=== PATIENT | female | born 1995 | race Caucasian/White ===

== ENCOUNTER 2016-08-06 21:15 | Emergency (ER) | payer OTHER ==
[2016-08-06 22:41] LABS: CONTROL LINE HCG INT CTR LINE PRESENT
--- NOTE | 2016-08-06 23:39 | EDDOCDS ---
Nurse's Notes [facility] Name: Keli Aleman Age: 20 yrs Sex: Female : 1995 Arrival Date: 08/06/2016 Time: 21:15 Bed I9 / Private MD: Jessica [facility] Diagnosis: Contusion of right hand Presentation: 08/06 21:22 Presenting complaint: Patient states: Right hand injury yesterday from fall. wants to rs3 get test done here. home tests were positive and negatives. Adult Sepsis Screening: The patient does not have new or worsening altered mentation. Patient's respiratory rate is less than 22. Systolic blood pressure is greater than 100. Patient has a qSOFA score of 0- Negative Sepsis Screen. Suicide/Homicide risk assessment- the patient denies having any suicidal and/or homicidal ideations and does not present with any other emotional, behavioral or mental health complaints. 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 Transition of care: patient was not received from another setting of care. 21:22 Acuity: TOMAS Level 4 rs3 21:22 Method Of Arrival: Walkin/Carried/Asstd rs3 Triage Assessment: 21:26 General: Appears in no apparent distress. Pain: Location: right hand. HIV screening NA rs3 for this visit Offered previously. DIRECTOR OF RECRUITING: 21:26 LMP N/A - Irregular menses rs3 Historical: - Allergies: Nickel (Rash); - Home Meds: 1. meloxicam 7.5 mg oral tab 1 tab once daily 2. Depo-Provera 150 mg/mL IM susp 1 mL every 3 mo - PMHx: none; - PSHx: wisdom teeth; bilateral breast reduction; - Social history: Smoking status: Patient states was never smoker of tobacco. No barriers to communication noted, The patient speaks fluent Bengali. - Family history: Not pertinent. - : The pt / caregiver states he / she is not on anticoagulants. Home medication list is obtained from the patient. - Exposure Risk Screening:: None identified. Screenin:16 Screening information is obtained from the patient. Fall risk: No risks identified. cz Assistance ADL's: requires no assistance with activities of daily living. Abuse/DV Screen: The patient / caregiver reports he/she is: not in a situation that causes fear, pain or injury. Nutritional screening: No deficits noted. home support is adequate. Assessment: 22:16 General: Appears in no apparent distress, Behavior is appropriate for age. GI: No cz deficits noted. 22:16 General: no deformity of hand noted. cz Vital Signs: 21:17 BP 151 / 89; Pulse 88; Resp 18; Temp 97.3; Pulse Ox 100% ; Weight 72.57 kg; Height 5 elp ft. 3 in. (160.02 cm); 23:31 BP 152 / 79 LA Sitting (auto/reg); Pulse 85 MON; Resp 20 S; Temp 97.2(T); Pulse Ox 96% cln on R/A; 21:17 Body Mass Index 28.34 (72.57 kg, 160.02 cm) [facility] Vitals: 21:17 Log In Time: August 06, 2016 at 21:00. [facility] ED Course: 21:16 Patient visited by Kecia Muñoz PCA. elp 21:16 Patient moved to Waiting elp 21:17 SHENG Lopez is Private Physician. elp 21:17 Patient visited by Kecia Muñoz PCA. elp 21:17 Patient moved to Pre RCE elp 21:25 Triage Initiated rs3 21:42 [facility] Call[facility]. ke 21:42 Patient visited by Peter Callahan FNP. ke 21:42 Patient visited by Peter Callahan FNP. ke 21:42 Patient moved to I kmg1 22:16 Patient visited by Brando Cooper RN. cz 22:16 The patient / caregiver is instructed regarding the plan of care and ED course. cz 22:16 No IV's were initiated during this patient's visit. No procedures done that require cz assistance. 22:57 Patient visited by Peter Callahan FNP. ke 23:19 SHENG Lopez is Referral Physician. ke 23:26 Patient moved to Radiology josef 23:26 Patient moved to I josef Order Results: Lab Order: HCG,Serum Qualitative; SPEC'M 08/06/16 22:10 Test: HCG, SERUM QUALITATIVE; Value: NEGATIVE; Range: NEGATIVE; Status: F Outcome: 23:19 Discharge ordered by Provider. ke 23:38 Discharge Assessment: Patient awake, alert and oriented x 3. No cognitive and/or cz functional deficits noted. Patient verbalized understanding of disposition instructions. patient administered narcotics - no. The following High Risk Discharge criteria are identified: None. Discharged to home ambulatory, with friend. Condition: stable. Discharge instructions given to patient, Instructed on discharge instructions, follow up and referral plans. medication usage, Demonstrated understanding of crutch walking, medications, Pt was receptive of discharge instructions/ teaching. Prescriptions given X 1. No special radiology studies were completed. Property :Personal belongings accompany Pt. 23:38 Patient left the ED. cz Signatures: Chandni Dias, RN RN km Brando Cooper, BRYSON RN cz Ranulfo Rutledge Karl, PHOTO TECHNICIAN PHOTO TECHNICIAN Brianda Elaine,RN RN rs3 Kecia Muñoz, ENGINEERING OFFICER ENGINEERING OFFICER elp Lisette Null, ENGINEERING OFFICER ENGINEERING OFFICER cln PHILD
--- NOTE | 2016-08-06 23:39 | EDDOCDS ---
Physician Documentation [facility] Name: Keli Aleman Age: 20 yrs Sex: Female : 1995 Arrival Date: 08/06/2016 Time: 21:15 Bed I9 / 22 Private MD: SHENG Lopez Disposition: 08/06/16 23:19 Discharged to Home/Self Care. Impression: Contusion of right hand. - Condition is Stable. - Discharge Instructions: Elastic Bandage and RICE, Hand Contusion. - Prescriptions for Ibuprofen 600 mg Oral Tablet - take 1 tablet by ORAL route every 6 hours As needed take with food; 30 tablet. - Medication Reconciliation, Local Pharmacy Hours form. - Follow up: SHENG Lopez; When: 4 - 5 days; Reason: Recheck today's complaints, Continuance of care. - Problem is an ongoing problem. - Symptoms are unchanged. Historical: - Allergies: Nickel (Rash); - Home Meds: 1. meloxicam 7.5 mg oral tab 1 tab once daily 2. Depo-Provera 150 mg/mL IM susp 1 mL every 3 mo - PMHx: none; - PSHx: wisdom teeth; bilateral breast reduction; - Social history: Smoking status: Patient states was never smoker of tobacco. No barriers to communication noted, The patient speaks fluent Amharic. - Family history: Not pertinent. - : The pt / caregiver states he / she is not on anticoagulants. Home medication list is obtained from the patient. - Exposure Risk Screening:: None identified. 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 3 in. (160.02 cm); 23:31 BP 152 / 79 LA Sitting (auto/reg); Pulse 85 MON; Resp 20 S; Temp 97.2(T); Pulse Ox 96% cln on R/A; 21:17 Body Mass Index 28.34 (72.57 kg, 160.02 cm) elp MDM: 21:58 HCG,Serum Qualitative Ordered. EDMS 22:57 HCG,Serum Qualitative Reviewed. ke 22:59 Hand, Complete Ordered. EDMS Signatures: Dispatcher [employer] EDMS Brando Cooper, BRYSON RN Peter Nova, ORNAMENTER HAND ORNAMENTER HAND Brianda Elaine RN RN rs3 MTDD
--- NOTE | 2016-08-07 11:24 | REP ---
Clinical: Trauma. Technique: AP, lateral, bilateral oblique views right hand . Findings: The osseous structures and joint spaces are intact and normal. There is no evidence for acute fracture or dislocation. Surrounding soft tissues are unremarkable. No subcutaneous emphysema or radiodense foreign body. Impression: Normal examination. No acute fracture or dislocation. Signed by Trae Roach MD 08/07/2016 01:28 A
--- NOTE | 2016-08-09 00:39 | EDDOCDS ---
Physician Documentation [facility] Name: Keli Aleman Age: 20 yrs Sex: Female : 1995 Arrival Date: 08/06/2016 Time: 21:15 Bed I9 / 22 Private MD: SHENG Lopez Disposition: 08/06/16 23:19 Discharged to Home/Self Care. Impression: Contusion of right hand. - Condition is Stable. - Discharge Instructions: Elastic Bandage and RICE, Hand Contusion. - Prescriptions for Ibuprofen 600 mg Oral Tablet - take 1 tablet by ORAL route every 6 hours As needed take with food; 30 tablet. - Medication Reconciliation, Local Pharmacy Hours form. - Follow up: SHENG Lopez; When: 4 - 5 days; Reason: Recheck today's complaints, Continuance of care. - Problem is an ongoing problem. - Symptoms are unchanged. Historical: - Allergies: Nickel (Rash); - Home Meds: 1. meloxicam 7.5 mg oral tab 1 tab once daily 2. Depo-Provera 150 mg/mL IM susp 1 mL every 3 mo - PMHx: none; - PSHx: wisdom teeth; bilateral breast reduction; - Social history: Smoking status: Patient states was never smoker of tobacco. No barriers to communication noted, The patient speaks fluent Sinhala. - Family history: Not pertinent. - : The pt / caregiver states he / she is not on anticoagulants. Home medication list is obtained from the patient. - Exposure Risk Screening:: None identified. 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 3 in. (160.02 cm); 23:31 BP 152 / 79 LA Sitting (auto/reg); Pulse 85 MON; Resp 20 S; Temp 97.2(T); Pulse Ox 96% cln on R/A; 21:17 Body Mass Index 28.34 (72.57 kg, 160.02 cm) elp MDM: 21:58 HCG,Serum Qualitative Ordered. EDMS 22:57 HCG,Serum Qualitative Reviewed. ke 22:59 Hand, Complete Ordered. EDMS 08/07 10:36 T-Sheet-- Draft Copy was scanned into [employer] and attached to record. gb Signatures: Dispatcher [employer] EDMS Brando Cooper, RN RN Tasha Clark, Reg Reg gb Peter Callahan, CERTIFIED MIDWIFE CERTIFIED MIDWIFE Brianda Elaine RN RN rs3 The chart was reviewed and I authenticate all verbal orders and agree with the evaluation and treatment provided.Attachments: 10:36 T-Sheet-- Draft Copy gb Chart Complete MTDD
--- NOTE | 2016-08-09 00:39 | EDDOCDS ---
Nurse's Notes [facility] Name: Keli Aleman Age: 20 yrs Sex: Female : 1995 Arrival Date: 08/06/2016 Time: 21:15 Bed I9 / Private MD: [place] [facility] [place]: Contusion of right hand Presentation: 08/06 21:22 Presenting complaint: Patient states: Right hand injury yesterday from fall. wants to rs3 get test done here. home tests were positive and negatives. Adult Sepsis Screening: The patient does not have new or worsening altered mentation. Patient's respiratory rate is less than 22. Systolic blood pressure is greater than 100. Patient has a qSOFA score of 0- Negative Sepsis Screen. Suicide/Homicide risk assessment- the patient denies having any suicidal and/or homicidal ideations and does not present with any other emotional, behavioral or mental health complaints. 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 Transition of care: patient was not received from another setting of care. 21:22 Acuity: TOMAS Level 4 rs3 21:22 Method Of Arrival: Walkin/Carried/Asstd rs3 Triage Assessment: 21:26 General: Appears in no apparent distress. Pain: Location: right hand. HIV screening NA rs3 for this visit Offered previously. COUNSELING PSYCHOLOGIST: 21:26 LMP N/A - Irregular menses rs3 Historical: - Allergies: Nickel (Rash); - Home Meds: 1. meloxicam 7.5 mg oral tab 1 tab once daily 2. Depo-Provera 150 mg/mL IM susp 1 mL every 3 mo - PMHx: none; - PSHx: wisdom teeth; bilateral breast reduction; - Social history: Smoking status: Patient states was never smoker of tobacco. No barriers to communication noted, The patient speaks fluent Maori. - Family history: Not pertinent. - : The pt / caregiver states he / she is not on anticoagulants. Home medication list is obtained from the patient. - Exposure Risk Screening:: None identified. Screenin:16 Screening information is obtained from the patient. Fall risk: No risks identified. cz Assistance ADL's: requires no assistance with activities of daily living. Abuse/DV Screen: The patient / caregiver reports he/she is: not in a situation that causes fear, pain or injury. Nutritional screening: No deficits noted. home support is adequate. Assessment: 22:16 General: Appears in no apparent distress, Behavior is appropriate for age. GI: No cz deficits noted. 22:16 General: no deformity of hand noted. cz Vital Signs: 21:17 BP 151 / 89; Pulse 88; Resp 18; Temp 97.3; Pulse Ox 100% ; Weight 72.57 kg; Height 5 elp ft. 3 in. (160.02 cm); 23:31 BP 152 / 79 LA Sitting (auto/reg); Pulse 85 MON; Resp 20 S; Temp 97.2(T); Pulse Ox 96% cln on R/A; 21:17 Body Mass Index 28.34 (72.57 kg, 160.02 cm) [facility] Vitals: 21:17 Log In Time: August 06, 2016 at 21:00. [facility] ED Course: 21:16 Patient visited by Kecia Muñoz PCA. elp 21:16 Patient moved to Waiting elp 21:17 SHENG Lopez is Private Physician. elp 21:17 Patient visited by Kecia Muñoz PCA. elp 21:17 Patient moved to Pre RCE elp 21:25 Triage Initiated rs3 21:42 [facility] Call[facility]. ke 21:42 Patient visited by Peter Callahan FNP. ke 21:42 Patient visited by Peter Callahan FNP. ke 21:42 Patient moved to I kmg1 22:16 Patient visited by Brando Cooper RN. cz 22:16 The patient / caregiver is instructed regarding the plan of care and ED course. cz 22:16 No IV's were initiated during this patient's visit. No procedures done that require cz assistance. 22:57 Patient visited by Peter Callahan FNP. ke 23:19 SHENG Lopez is Referral Physician. ke 23:26 Patient moved to Radiology josef 23:26 Patient moved to I josef 08/07 10:36 T-Sheet-- Draft Copy was scanned into iMega and attached to record. gb 11:53 Hand, Complete Returned. EDMS Order Results: Lab Order: HCG,Serum Qualitative; SPEC'M 08/06/16 22:10 Test: HCG, SERUM QUALITATIVE; Value: NEGATIVE; Range: NEGATIVE; Status: F Radiology Order: Hand, Complete Test: Hand, Complete REASON FOR EXAMINATION: Trauma; Clinical: Trauma.; ; Technique: AP, lateral, bilateral oblique views right hand .; ; Findings: The osseous structures and joint spaces are intact and normal. There; is no evidence for acute fracture or dislocation. Surrounding soft tissues are; unremarkable. No subcutaneous emphysema or radiodense foreign body.; ; Impression:; Normal examination. No acute fracture or dislocation.; ; ; Signed by; Trae Roach MD 08/07/2016 01:28 A; Outcome: 08/06 23:19 Discharge ordered by Provider. katy 23:38 Discharge Assessment: Patient awake, alert and oriented x 3. No cognitive and/or cz functional deficits noted. Patient verbalized understanding of disposition instructions. patient administered narcotics - no. The following High Risk Discharge criteria are identified: None. Discharged to home ambulatory, with friend. Condition: stable. Discharge instructions given to patient, Instructed on discharge instructions, follow up and referral plans. medication usage, Demonstrated understanding of crutch walking, medications, Pt was receptive of discharge instructions/ teaching. Prescriptions given X 1. No special radiology studies were completed. Property :Personal belongings accompany Pt. 23:38 Patient left the ED. cz Signatures: Dispatcher MedHost EDMS Chandni Dias, RN RN km Brando Cooper RN RN cz Ranulfo Rutledge Gloria, Reg Reg Peter Hernandez, AUTOMOTIVE GLASS SPECIALIST AUTOMOTIVE GLASS SPECIALIST Brianda Elaine RN RN rs3 Kecia Muoñz, SENIOR TRAINING SPECIALIST SENIOR TRAINING SPECIALIST cap Lisette Null, SENIOR TRAINING SPECIALIST SENIOR TRAINING SPECIALIST cln Chart Complete MTDD
--- NOTE | 2016-08-09 00:39 | EDDOCDS ---
Physician Documentation [facility] Name: Keli Aleman Age: 20 yrs Sex: Female : 1995 Arrival Date: 08/06/2016 Time: 21:15 Bed I9 / 22 Private MD: SHENG Lopez Disposition: 08/06/16 23:19 Discharged to Home/Self Care. Impression: Contusion of right hand. - Condition is Stable. - Discharge Instructions: Elastic Bandage and RICE, Hand Contusion. - Prescriptions for Ibuprofen 600 mg Oral Tablet - take 1 tablet by ORAL route every 6 hours As needed take with food; 30 tablet. - Medication Reconciliation, Local Pharmacy Hours form. - Follow up: SHENG Lopez; When: 4 - 5 days; Reason: Recheck today's complaints, Continuance of care. - Problem is an ongoing problem. - Symptoms are unchanged. Historical: - Allergies: Nickel (Rash); - Home Meds: 1. meloxicam 7.5 mg oral tab 1 tab once daily 2. Depo-Provera 150 mg/mL IM susp 1 mL every 3 mo - PMHx: none; - PSHx: wisdom teeth; bilateral breast reduction; - Social history: Smoking status: Patient states was never smoker of tobacco. No barriers to communication noted, The patient speaks fluent Swedish. - Family history: Not pertinent. - : The pt / caregiver states he / she is not on anticoagulants. Home medication list is obtained from the patient. - Exposure Risk Screening:: None identified. COPPER ETCHER: 08/06 21:26 LMP N/A - Irregular menses rs3 Vital Signs: 21:17 BP 151 / 89; Pulse 88; Resp 18; Temp 97.3; Pulse Ox 100% ; Weight 72.57 kg / 159.99 elp lbs; Height 5 ft. 3 in. (160.02 cm); 23:31 BP 152 / 79 LA Sitting (auto/reg); Pulse 85 MON; Resp 20 S; Temp 97.2(T); Pulse Ox 96% cln on R/A; 21:17 Body Mass Index 28.34 (72.57 kg, 160.02 cm) elp MDM: 21:58 HCG,Serum Qualitative Ordered. EDMS 22:57 HCG,Serum Qualitative Reviewed. ke 22:59 Hand, Complete Ordered. EDMS 08/07 10:36 T-Sheet-- Draft Copy was scanned into MEDFonJax and attached to record. gb Signatures: Dispatcher MedHost EDMS Brando Cooper, RN RN Tasha Clark, Reg Reg gb Peter Callahan, EVENTS MANAGER EVENTS MANAGER Brianda Elaine RN RN rs3 The chart was reviewed and I authenticate all verbal orders and agree with the evaluation and treatment provided.Attachments: 10:36 T-Sheet-- Draft Copy gb Chart Complete MTDD
== END 2016-08-06 23:38 | disposition home or self-care (01) ==
LOC: M ED 21:15
DX: S60.221A Contusion of right hand, initial encounter (principal); W19.XXXA Unspecified fall, initial encounter; Y92.89 Other specified places as the place of occurrence of the external cause; Y93.89 Activity, other specified; Y99.8 Other external cause status; R11.0 Nausea; Z79.899 Other long term (current) drug therapy; Z91.09 Other allergy status, other than to drugs and biological substances

== ENCOUNTER 2016-08-07 16:57 | Emergency (ER) | payer OTHER ==
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
--- NOTE | 2016-08-07 18:21 | EDDOCDS ---
Physician Documentation Name: Keli Aleman Age: 20 yrs Sex: Female : 1995 Arrival Date: 08/07/2016 Time: 16:57 Bed 30 Private MD: Disposition: 08/07/16 18:13 Discharged to Home/Self Care. 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 - Condition is Stable. - Discharge Instructions: Adjustment Disorder, Self-Destructive Behavior. - Medication Reconciliation, Local Pharmacy Hours form. - Follow up: Izzy [facility], Behavioral Health; When: 2 - 3 days; Reason: Recheck today's complaints, Continuance of care. - Problem is an ongoing problem. - Symptoms are unchanged. Historical: - Allergies: Nickel (Rash); - Home Meds: 1. Depo-Provera 150 mg/mL IM susp 1 mL every 3 mo 2. meloxicam 7.5 mg oral tab 1 tab once daily as needed 3. ibuprofen 600 mg Oral tab as needed (Last dose: 08/06/2016) - PMHx: none; - PSHx: Breast Reduction; - Social history: Smoking status: Patient states was never smoker of tobacco. No barriers to communication noted, The patient speaks fluent Nigerian, Speaks appropriately for age. - Family history: Not pertinent. - : The pt / caregiver states he / she is not on anticoagulants. Home medication list is obtained from the patient. - Exposure Risk Screening:: None identified. MATERIAL RECLAIMER: 08/07 17:12 LMP N/A - control method kr3 Vital Signs: 17:14 BP 152 / 93; Pulse 77; Resp 16; Temp 98.7(O); Pulse Ox 99% on R/A; Weight 68.04 kg / kr3 150 lbs (R); Height 5 ft. 3 in. (160.02 cm) (R); 18:18 BP 144 / 80; Pulse 77; Resp 18; Temp 98.0(O); Pulse Ox 99% on R/A; Pain 0/10; jmb 17:14 Body Mass Index 26.57 (68.04 kg, 160.02 cm) kr3 Signatures: Peter Callahan FNP OFFICER LIEUTENANT Mary Grace Moore RN RN kr3 Borrero,Nima,RN RN jmb MTDD
--- NOTE | 2016-08-09 19:22 | EDDOCDS ---
Physician Documentation [facility] Name: Keli Aleman Age: 20 yrs Sex: Female : 1995 Arrival Date: 08/07/2016 Time: 16:57 Bed 30 Private MD: Disposition: 08/07/16 18:13 Discharged to Home/Self Care. 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 - Condition is Stable. - Discharge Instructions: Adjustment Disorder, Self-Destructive Behavior. - Medication Reconciliation, Local Pharmacy Hours form. - Follow up: Izzy Machuca, Behavioral Health; When: 2 - 3 days; Reason: Recheck today's complaints, Continuance of care. - Problem is an ongoing problem. - Symptoms are unchanged. Historical: - Allergies: Nickel (Rash); - Home Meds: 1. Depo-Provera 150 mg/mL IM susp 1 mL every 3 mo 2. meloxicam 7.5 mg oral tab 1 tab once daily as needed 3. ibuprofen 600 mg Oral tab as needed (Last dose: 08/06/2016) - PMHx: none; - PSHx: Breast Reduction; - Social history: Smoking status: Patient states was never smoker of tobacco. No barriers to communication noted, The patient speaks fluent [place] Of [place], Speaks appropriately for age. - Family history: Not pertinent. - : The pt / caregiver states he / she is not on anticoagulants. Home medication list is obtained from the patient. - Exposure Risk Screening:: None identified. OUTSIDE PLANT ENGINEER: 08/07 17:12 LMP N/A - control method kr3 Vital Signs: 17:14 BP 152 / 93; Pulse 77; Resp 16; Temp 98.7(O); Pulse Ox 99% on R/A; Weight 68.04 kg / kr3 150 lbs (R); Height 5 ft. 3 in. (160.02 cm) (R); 18:18 BP 144 / 80; Pulse 77; Resp 18; Temp 98.0(O); Pulse Ox 99% on R/A; Pain 0/10; jmb 17:14 Body Mass Index 26.57 (68.04 kg, 160.02 cm) kr3 MDM: 18:25 PSA Outpatient Referrals was scanned into Pingup and attached to record. ms 18:37 Financial registration complete. zo 18:50 Other: EMS run sheet was scanned into Pingup and attached to record. ms 19:54 [facility] Payment Agreement was scanned into MEDHOST and attached to record. zo 08/08 08: T-Sheet-- Draft Copy was scanned into Bantu LLCHOST and attached to record. gb 13:17 PCR was scanned into MEDHOST and attached to record. gb Signatures: Stone, Caron, PSA PSA ms Denver, Tasha, Reg Reg gb Peter Callahan, COMMERCIAL HORTICULTURE INSTRUCTOR Mary Grace Monique,RN RN kr3 Trell Douglas Joshua,RN RN jmb The chart was reviewed and I authenticate all verbal orders and agree with the evaluation and treatment provided.Attachments: 19:54 [facility] Payment Agreement zo 08/08 08:31 T-Sheet-- Draft Copy gb Chart Complete MTDD
--- NOTE | 2016-08-09 19:22 | EDDOCDS ---
Physician Documentation [facility] Name: Keli Aleman Age: 20 yrs Sex: Female : 1995 Arrival Date: 08/07/2016 Time: 16:57 Bed 30 Private MD: Disposition: 08/07/16 18:13 Discharged to Home/Self Care. 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 - Condition is Stable. - Discharge Instructions: Adjustment Disorder, Self-Destructive Behavior. - Medication Reconciliation, Local Pharmacy Hours form. - Follow up: Izzy Machuca, Behavioral Health; When: 2 - 3 days; Reason: Recheck today's complaints, Continuance of care. - Problem is an ongoing problem. - Symptoms are unchanged. Historical: - Allergies: Nickel (Rash); - Home Meds: 1. Depo-Provera 150 mg/mL IM susp 1 mL every 3 mo 2. meloxicam 7.5 mg oral tab 1 tab once daily as needed 3. ibuprofen 600 mg Oral tab as needed (Last dose: 08/06/2016) - PMHx: none; - PSHx: Breast Reduction; - Social history: Smoking status: Patient states was never smoker of tobacco. No barriers to communication noted, The patient speaks fluent Equ[place] Guinean, Speaks appropriately for age. - Family history: Not pertinent. - : The pt / caregiver states he / she is not on anticoagulants. Home medication list is obtained from the patient. - Exposure Risk Screening:: None identified. STREET PHOTOGRAPHER: 08/07 17:12 LMP N/A - control method kr3 Vital Signs: 17:14 BP 152 / 93; Pulse 77; Resp 16; Temp 98.7(O); Pulse Ox 99% on R/A; Weight 68.04 kg / kr3 150 lbs (R); Height 5 ft. 3 in. (160.02 cm) (R); 18:18 BP 144 / 80; Pulse 77; Resp 18; Temp 98.0(O); Pulse Ox 99% on R/A; Pain 0/10; jmb 17:14 Body Mass Index 26.57 (68.04 kg, 160.02 cm) kr3 MDM: 18:25 PSA Outpatient Referrals was scanned into AVA.ai and attached to record. ms 18:37 Financial registration complete. zo 18:50 Other: EMS run sheet was scanned into AVA.ai and attached to record. ms 19:54 [facility] Payment Agreement was scanned into MEDHOST and attached to record. zo 08/08 08: T-Sheet-- Draft Copy was scanned into MotiloHOST and attached to record. gb 13:17 PCR was scanned into MEDHOST and attached to record. gb Signatures: Stone, Caron, PSA PSA ms Denver, Tasha, Reg Reg gb Peter Callahan, PRIMARY CARE MD Mary Grace Monique,RN RN kr3 Trell Douglas Joshua,RN RN jmb The chart was reviewed and I authenticate all verbal orders and agree with the evaluation and treatment provided.Attachments: 19:54 [facility] Payment Agreement zo 08/08 08:31 T-Sheet-- Draft Copy gb Chart Complete MTDD
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
== END 2016-08-07 18:20 | disposition home or self-care (01) ==
LOC: M ED 16:57
DX: F43.0 Acute stress reaction (principal); Z79.899 Other long term (current) drug therapy; Z91.09 Other allergy status, other than to drugs and biological substances

== ENCOUNTER 2016-11-19 03:54 | Emergency (ER) | payer OTHER ==
[2016-11-19] MEDS ORDERED: AMIT25TA PO (06:13)
[2016-11-19] MEDS ORDERED: ZOFR4TAB3 PO (07:31)
== END 2016-11-19 04:16 | disposition left against medical advice (07) ==
LOC: M ED 04:15
DX: Z04.8 Encounter for examination and observation for other specified reasons (principal); Z53.21 Procedure and treatment not carried out due to patient leaving prior to being seen by health care provider

== ENCOUNTER 2016-11-19 06:00 | Emergency (ER) | payer OTHER ==
[~2016-11-19] VITALS: Ht 160 cm; Wt 74.8 kg
[2016-11-19] MEDS ORDERED: AMIT25TA PO (06:13)
[2016-11-19] MEDS ORDERED: ONDANSETRON 4 MG ORAL DISINTEGRATING TAB (S0181) PO ONE (06:30)
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
[2016-11-19] MEDS ORDERED: ZOFR4TAB3 PO (07:31)
[2016-11-19 07:36] VITALS: BP 151/89
== END 2016-11-19 07:40 | disposition home or self-care (01) ==
LOC: M ED 06:35
DX: S00.90XA Unspecified superficial injury of unspecified part of head, initial encounter (principal); S00.31XA Abrasion of nose, initial encounter; Y04.8XXA Assault by other bodily force, initial encounter; Y92.89 Other specified places as the place of occurrence of the external cause; Y93.89 Activity, other specified; Y99.8 Other external cause status; R11.0 Nausea; D64.9 Anemia, unspecified; Z79.899 Other long term (current) drug therapy; F17.200 Nicotine dependence, unspecified, uncomplicated; Z91.09 Other allergy status, other than to drugs and biological substances

== ENCOUNTER → 2016-12-20 | Outpatient (CLI) | payer OTHER ==
[~2016-12-20] MED LIST: AMIT25TA PO; CONRAY-43 43% 50ML VIAL (Q9960) As Ordered ONE; LIDOCAINE 1% MDV 20ML VIAL As Ordered ONE; PERC5TAB6 PO; TRIAMCINOLONE ACETONIDE SUSP 40 MG/ML VIAL (J3301) As Ordered ONE; ZOFR4TAB3 PO
--- NOTE | 2016-12-20 20:10 | REP ---
Right hip injection The procedure was performed under the direct supervision of Dr. Cash. The benefits and risks including but not limited to pain infection and bleeding and anaphylaxis were explained to the patient and informed consent was obtained. The right femoral neck was localized using fluoroscopic guidance. The skin was prepped and draped in a sterile fashion. 1% lidocaine was used as a local anesthetic. Using fluoroscopic guidance a 22-gauge spinal needle was inserted and advanced to the femoral neck. 0.5 ml of Conray 43 was injected to verify placement. 10 ml of a solution containing 9 ml of 1% Xylocaine and 1 ml of Kenalog 40 mg was injected. The needle was then removed. The patient tolerated the procedure well and there were no immediate complications. Four seconds of fluoro time was utilized for this procedure. Reviewed by ESHA Smart 12/20/2016 01:57 PSigned by Jim Cash MD 12/20/2016 07:51 P
== END ==
LOC: M RADPRO 09:58
PROVIDERS: ATTEND Orthopaedic Surgery
DX: M25.551 Pain in right hip (principal)
CPT/HCPCS: 20610; 77002; J3301; Q9960

== ENCOUNTER 2016-12-30 08:23 | Emergency (ER) | payer OTHER ==
[~2016-12-30] VITALS: Ht 160 cm; Wt 68.0 kg
[~2016-12-30 08:23] MED LIST changes: -CONRAY-43 43% 50ML VIAL (Q9960) As Ordered ONE; -LIDOCAINE 1% MDV 20ML VIAL As Ordered ONE; -PERC5TAB6 PO; -TRIAMCINOLONE ACETONIDE SUSP 40 MG/ML VIAL (J3301) As Ordered ONE
[2016-12-30] MEDS ORDERED: KETOROLAC 60 MG/2 ML VIAL (J1885) IM ONE (09:15)
[2016-12-30] MEDS ORDERED: PERC5TAB12 PO (10:15)
[2016-12-30 10:23] VITALS: BP 145/96
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
== END 2016-12-30 10:36 | disposition home or self-care (01) ==
LOC: M ED 09:30
DX: S92.515A Nondisplaced fracture of proximal phalanx of left lesser toe(s), initial encounter for closed fracture (principal); W19.XXXA Unspecified fall, initial encounter; Y92.009 Unspecified place in unspecified non-institutional (private) residence as the place of occurrence of the external cause; Y93.89 Activity, other specified; Y99.8 Other external cause status; Z91.09 Other allergy status, other than to drugs and biological substances
CPT/HCPCS: 73630; 81025; 96372; 99283; J1885

== ENCOUNTER 2017-07-23 18:31 | Emergency (ER) | payer OTHER ==
[2017-07-23] MEDS: diphenhydrAMINE INJ 50MG/ML VIAL (J1200) IV (20:59)
[2017-07-23] MEDS: KETOROLAC 30 MG/ML VIAL (J1885) IV (21:00)
[2017-07-23] MEDS: METOCLOPRAMIDE INJ 10MG/2ML VIAL (J2765) IV (21:00)
[2017-07-23] MEDS: NS 1,000 ML IV (21:00)
== END 2017-07-23 22:31 | disposition home or self-care (01) ==
LOC: M ED 18:31
DX: J06.9 Acute upper respiratory infection, unspecified (principal); B34.9 Viral infection, unspecified; Z98.890 Other specified postprocedural states; Z91.018 Allergy to other foods; Z86.2 Personal history of diseases of the blood and blood-forming organs and certain disorders involving the immune mechanism
CPT/HCPCS: J1200

== ENCOUNTER 2017-10-30 18:56 | Emergency (ER) | payer OTHER ==
[2017-10-30] MEDS: diphenhydrAMINE INJ 50MG/ML VIAL (J1200) IV (19:32)
[2017-10-30] MEDS: ONDANSETRON 4MG/2ML VIAL (J2405) IV (19:32)
[2017-10-30] MEDS: KETOROLAC 30 MG/ML VIAL (J1885) IV (19:32)
[2017-10-30 19:33] LABS: BASO # 0.1 10^3/uL (0.0-0.2); BASO % 0.8 % (0.0-1.0); EOS # 0.1 10^3/uL (0.0-0.50); HEMATOCRIT 34.9 % (36.0-47.0); HEMOGLOBIN 11.5 g/dl (12.0-15.5); IMMATURE GRANULOCYTE % 0.2 % (0-3.0); LYMPH % 33.4 % (24.0-44.0); MEAN CORPUSCULAR HEMOGLOBIN 30.7 pg (27.0-33.0); MEAN CORPUSCULAR VOLUME 93.1 fl (80.0-96.0); MONO # 0.6 10^3/uL (0.0-0.8); MONO % 6.9 % (0.0-5.0); NEUTROPHILS # 5.1 10^3/uL (1.8-7.7); NEUTROPHILS % 57.7 % (36.0-66.0); PLATELET COUNT, AUTOMATED 221 10^3/uL (150-450); RED BLOOD COUNT 3.75 10^6/uL (4.00-5.40); RED CELL DISTRIBUTION WIDTH 13.1 % (11.5-14.5); WHITE BLOOD COUNT 8.9 10^3/uL (4.0-10.0)
[2017-10-30 19:51] LABS: ANION GAP 6 MEQ/L (8-16); BLOOD UREA NITROGEN 14 MG/DL (7-18); CALCIUM LEVEL 8.5 MG/DL (8.5-10.1); CARBON DIOXIDE LEVEL 28 MEQ/L (21-32); CHLORIDE LEVEL 108 MEQ/L (98-107); CREATININE FOR GFR 0.87 MG/DL (0.55-1.30); GLUCOSE, FASTING 97 MG/DL (70-100); POTASSIUM SERUM 3.6 MEQ/L (3.5-5.1); SODIUM LEVEL 142 MEQ/L (136-145)
== END 2017-10-30 21:17 | disposition home or self-care (01) ==
LOC: M ED 18:56
DX: G44.209 Tension-type headache, unspecified, not intractable (principal); F43.10 Post-traumatic stress disorder, unspecified; Z91.048 Other nonmedicinal substance allergy status; Z79.899 Other long term (current) drug therapy
CPT/HCPCS: J1200

== ENCOUNTER 2018-05-22 07:29 | Emergency (ER) | payer OTHER ==
[2018-05-22] MEDS: METOCLOPRAMIDE INJ 10MG/2ML VIAL (J2765) IV (07:57)
[2018-05-22] MEDS: NS 1,000 ML IV (07:57)
[2018-05-22] MEDS: KETOROLAC 30 MG/ML VIAL (J1885) IV (07:57)
[2018-05-22] MEDS: diphenhydrAMINE INJ 50MG/ML VIAL (J1200) IV (07:57)
[2018-05-22] MEDS ORDERED: ONDANSETRON 4MG/2ML VIAL (J2405) As Ordered (09:30)
[2018-05-22] MEDS: ONDANSETRON 4MG/2ML VIAL (J2405) IV (09:32)
== END 2018-05-22 09:48 | disposition home or self-care (01) ==
LOC: M ED 07:29
DX: G43.709 Chronic migraine without aura, not intractable, without status migrainosus (principal); Z91.048 Other nonmedicinal substance allergy status; Z79.899 Other long term (current) drug therapy
CPT/HCPCS: J1200

== ENCOUNTER 2018-06-04 21:13 | Emergency (ER) | payer OTHER ==
[2018-06-04] MEDS: diphenhydrAMINE INJ 50MG/ML VIAL (J1200) IV (23:08)
[2018-06-04] MEDS: METOCLOPRAMIDE INJ 10MG/2ML VIAL (J2765) IV (23:15)
[2018-06-04] MEDS: KETOROLAC 30 MG/ML VIAL (J1885) IV (23:15)
== END 2018-06-05 00:02 | disposition home or self-care (01) ==
LOC: M ED 06-05 00:02
DX: G43.919 Migraine, unspecified, intractable, without status migrainosus (principal); Z91.048 Other nonmedicinal substance allergy status
CPT/HCPCS: J1200

== ENCOUNTER → 2018-06-07 | Outpatient (REF) | payer OTHER ==
[2018-06-07 13:26] LABS: BASO # 0.1 10^3/uL (0.0-0.2); BASO % 0.7 % (0.0-1.0); EOS # 0.1 10^3/uL (0.0-0.50); HEMATOCRIT 37.9 % (36.0-47.0); HEMOGLOBIN 12.2 g/dl (12.0-15.5); IMMATURE GRANULOCYTE % 0.4 % (0-3.0); LYMPH # 2.1 10^3/uL (1.5-6.5); LYMPH % 25.6 % (24.0-44.0); MEAN CORPUSCULAR HEMOGLOBIN 30.3 pg (27.0-33.0); MEAN CORPUSCULAR HGB CONC 32.2 g/dl (32.0-36.5); MEAN CORPUSCULAR VOLUME 94.3 fl (80.0-96.0); MONO # 0.7 10^3/uL (0.0-0.8); MONO % 8.6 % (0.0-5.0); NEUTROPHILS # 5.2 10^3/uL (1.8-7.7); NEUTROPHILS % 63.7 % (36.0-66.0); PLATELET COUNT, AUTOMATED 307 10^3/uL (150-450); RED BLOOD COUNT 4.02 10^6/uL (4.00-5.40); RED CELL DISTRIBUTION WIDTH 12.8 % (11.5-14.5); WHITE BLOOD COUNT 8.2 10^3/uL (4.0-10.0)
[2018-06-07 13:48] LABS: ALBUMIN 3.7 GM/DL (3.2-5.2); ALBUMIN/GLOBULIN RATIO 1.09 (1.00-1.93); ALKALINE PHOSPHATASE 68 U/L (45-117); ALT/SGPT 21 U/L (12-78); ANION GAP 9 MEQ/L (8-16); AST/SGOT 13 U/L (7-37); BILIRUBIN,TOTAL 0.3 MG/DL (0.2-1.0); BLOOD UREA NITROGEN 16 MG/DL (7-18); CALCIUM LEVEL 8.2 MG/DL (8.5-10.1); CARBON DIOXIDE LEVEL 24 MEQ/L (21-32); CHLORIDE LEVEL 108 MEQ/L (98-107); CREATININE FOR GFR 1.12 MG/DL (0.55-1.30); GLOMERULAR FILTRATION RATE > 60.0 (>60); GLUCOSE, FASTING 78 MG/DL (70-100); POTASSIUM SERUM 4.4 MEQ/L (3.5-5.1); RHEUMATOID FACTOR QUANT < 10.0 IU/ML (<15.0); SODIUM LEVEL 141 MEQ/L (136-145); TOTAL 25(OH) VITAMIN D 28.6 NG/ML (30.0-100.0); TOTAL PROTEIN 7.1 GM/DL (6.4-8.2)
[2018-06-07 14:24] LABS: ERYTHROCYTE SEDIMENTATION RATE 17 mm/hr (0-20)
[2018-06-08 14:13] LABS: ANTINUCLEAR ANTIBODIES DIRECT Negative (Negative)
== END ==
LOC: M LABNEURO 09:45
DX: R51 Headache (principal)
CPT/HCPCS: 84443

== ENCOUNTER 2018-08-09 15:36 | Emergency (ER) | payer OTHER ==
[~2018-08-09] VITALS: Ht 160 cm; Wt 85.9 kg
[~2018-08-09 15:36] MED LIST changes: +BENA25TA10 PO; +KETO10TAB PO; +MIRT1TAB PO; +NAPR-885 PO; +PERC5TAB12 PO; +REGL10TA6 PO; +RIZA10TA4; +SUMA50TA2 PO; +TOPI100T9; +TRAZ-163; +TRAZ25TA PO; +WELLTAB38; +ZOFR4TAB14 PO; -ZOFR4TAB3 PO
[2018-08-09] MEDS ORDERED: PREN1TAB26 PO (15:41)
[2018-08-09 17:22] LABS: BASO % 0.3 % (0.0-1.0); EOS # 0.1 10^3/uL (0.0-0.50); EOS % 0.6 % (0.0-3.0); HEMATOCRIT 36.8 % (36.0-47.0); HEMOGLOBIN 12.2 g/dl (12.0-15.5); LYMPH # 1.9 10^3/uL (1.5-6.5); LYMPH % 16.5 % (24.0-44.0); MEAN CORPUSCULAR HEMOGLOBIN 30.7 pg (27.0-33.0); MEAN CORPUSCULAR HGB CONC 33.2 g/dl (32.0-36.5); MEAN CORPUSCULAR VOLUME 92.7 fl (80.0-96.0); MONO # 0.6 10^3/uL (0.0-0.8); MONO % 5.7 % (0.0-5.0); NEUTROPHILS # 8.6 10^3/uL (1.8-7.7); NEUTROPHILS % 76.5 % (36.0-66.0); PLATELET COUNT, AUTOMATED 276 10^3/uL (150-450); RED BLOOD COUNT 3.97 10^6/uL (4.00-5.40); WHITE BLOOD COUNT 11.3 10^3/uL (4.0-10.0)
--- NOTE | 2018-08-09 17:31 | REP ---
Clinical: Dating and viability. Technique: Transabdominal First trimester obstetrical ultrasound with color Doppler evaluation. Findings: Single live early intrauterine is appreciated. Gestational sac with yolk sac and pole identified. Neches-rump length of 5 cm corresponds to 11 weeks 5 days gestational age with estimated date of delivery 02/23/2019 . heart rate equals 158 beats per minute. No gross abnormalities are identified. Maternal ovaries are normal and a 3.7 cm right corpus luteal cyst is identified. Bilateral ovaries are normal and without torsion. Right ovary measures 5.7 x 3.6 x 4.0 cm; RI 0.45. Left ovary measures 2.9 x 3.0 x 1.7 cm; RI 0.47 Impression: Single live early intrauterine at 11 weeks 5 days gestational age. Complete anatomical assessment should be performed and 19-20 weeks. Electronically Signed by Trae Roach MD 08/09/2018 05:23 P
[2018-08-09] MEDS ORDERED: ACETAMINOPHEN TAB 650MG DOSE (2X325MG) PO ONE (19:00)
[2018-08-09] MEDS ORDERED: AMOX500C PO (19:59)
[2018-08-09 20:06] VITALS: BP 136/86
[2018-08-09 20:53] LABS: CHLAMYDIA DNA AMPLIFICATION NEGATIVE (NEGATIVE); GC DNA AMPLIFICATION NEGATIVE (NEGATIVE)
== END 2018-08-09 20:09 | disposition home or self-care (01) ==
LOC: M ED 15:36
DX: O9A.211 Injury, poisoning and certain other consequences of external causes complicating pregnancy, first trimester (principal); W00.9XXA Unspecified fall due to ice and snow, initial encounter; Y92.89 Other specified places as the place of occurrence of the external cause; Y93.H1 Activity, digging, shoveling and raking; O23.41 Unspecified infection of urinary tract in pregnancy, first trimester; O99.341 Other mental disorders complicating pregnancy, first trimester; F43.20 Adjustment disorder, unspecified; Z3A.11 11 weeks gestation of pregnancy; Z87.891 Personal history of nicotine dependence; Z91.048 Other nonmedicinal substance allergy status

== ENCOUNTER 2018-09-10 23:29 | Emergency (ER) | payer OTHER ==
[~2018-09-10] VITALS: Ht 160 cm; Wt 81.8 kg
[~2018-09-10 23:29] MED LIST changes: +AMOX500C PO; +PREN1TAB26 PO
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
[2018-09-11 01:51] VITALS: BP 135/76
== END 2018-09-11 01:54 | disposition home or self-care (01) ==
LOC: M ED 23:29
DX: S39.91XA Unspecified injury of abdomen, initial encounter (principal); Y04.8XXA Assault by other bodily force, initial encounter; Y92.9 Unspecified place or not applicable; Y93.89 Activity, other specified; Y99.9 Unspecified external cause status; Z3A.16 16 weeks gestation of pregnancy; O34.82 Maternal care for other abnormalities of pelvic organs, second trimester; Z79.899 Other long term (current) drug therapy; Z91.89 Other specified personal risk factors, not elsewhere classified

== ENCOUNTER 2018-10-18 01:04 | Outpatient (CLI) | payer OTHER ==
[~2018-10-18] VITALS: Ht 160 cm; Wt 87.4 kg
[2018-10-18 01:34] VITALS: BP 140/84
[2018-10-18] MEDS ORDERED: ONDANSETRON 4 MG ORAL DISINTEGRATING TAB (Q0162 PER 1MG) As Ordered ONE (01:38)
[2018-10-18] MEDS ORDERED: ZOLO25TA PO (01:41)
[2018-10-18] MEDS ORDERED: PRENTAB9 PO (01:41)
[2018-10-18] MEDS ORDERED: ONDANSETRON 4 MG ORAL DISINTEGRATING TAB (Q0162 PER 1MG) PO ONE (01:45)
[2018-10-18 01:51] VITALS: BP 130/73
[2018-10-18 02:06] VITALS: BP 121/66
[2018-10-18 02:21] VITALS: BP 131/65
[2018-10-18 02:36] VITALS: BP 116/58
[2018-10-18 03:44] VITALS: BP 107/59
--- NOTE | 2018-10-18 04:12 | NUR ---
L&D Triage 22yo G1 at 21+5 weeks. Presents with lower pelvic discomfort and nausea/vomiting. No VB/LOF/uctx. Reports FM. PN course has been uncomplicated. PMH: none SH: b/l breast reduction, hip arthroplasty Meds: PNV All: Reglan, Nickel. 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 Uterine fundus nontender. Fundal ht c/w/d. Doptones/EFM: 160bpm Mabie: no ctxs A/P: 22yo G1 at 21+5 weeks. Symptoms improved with Zofran ODT. -Routine second trimester precautions reviewed -RTO as scheduled. Gonsalo Ni DO
== END 2018-10-18 04:09 | disposition home or self-care (01) ==
LOC: M LDO 01:04
PROVIDERS: ATTEND Obstetrics & Gynecology
DX: O21.0 Mild hyperemesis gravidarum (principal); O26.892 Other specified pregnancy related conditions, second trimester; R10.30 Lower abdominal pain, unspecified; Z3A.21 21 weeks gestation of pregnancy
CPT/HCPCS: G0378; G0463; Q0162

== ENCOUNTER 2018-11-04 16:34 | Outpatient (CLI) | payer OTHER ==
[~2018-11-04] VITALS: Ht 160 cm; Wt 89.0 kg
[~2018-11-04 16:34] MED LIST changes: +PRENTAB9 PO; +ZOLO25TA PO
[2018-11-04 16:50] VITALS: BP 125/83
[2018-11-04] MEDS ORDERED: LR 1,000 ML IV ONE (17:30)
[2018-11-04] MEDS ORDERED: ONDANSETRON 4MG/2ML VIAL (J2405) IV ONE (17:30)
[2018-11-04 18:02] VITALS: BP 135/86
[2018-11-04 18:10] VITALS: BP 122/64
[2018-11-04 18:11] LABS: HEMATOCRIT 33.8 % (36.0-47.0); HEMOGLOBIN 11.4 g/dl (12.0-15.5); MEAN CORPUSCULAR HEMOGLOBIN 32.7 pg (27.0-33.0); MEAN CORPUSCULAR HGB CONC 33.7 g/dl (32.0-36.5); MEAN CORPUSCULAR VOLUME 96.8 fl (80.0-96.0); PLATELET COUNT, AUTOMATED 228 10^3/uL (150-450); RED BLOOD COUNT 3.49 10^6/uL (4.00-5.40); WHITE BLOOD COUNT 13.9 10^3/uL (4.0-10.0)
[2018-11-04 18:36] LABS: ALT/SGPT 19 U/L (12-78); BILIRUBIN,TOTAL 0.1 MG/DL (0.2-1.0); BLOOD UREA NITROGEN 7 MG/DL (7-18); CALCIUM LEVEL 8.1 MG/DL (8.5-10.1); CARBON DIOXIDE LEVEL 25 MEQ/L (21-32); CHLORIDE LEVEL 108 MEQ/L (98-107); CREATININE FOR GFR 0.57 MG/DL (0.55-1.30); GLOMERULAR FILTRATION RATE > 60.0 (>60); GLUCOSE, FASTING 79 MG/DL (70-100); POTASSIUM SERUM 3.8 MEQ/L (3.5-5.1); SODIUM LEVEL 138 MEQ/L (136-145)
--- NOTE | 2018-11-04 19:43 | IPNPDOC ---
Text Note Date of Service The patient was seen on 11/04/18. NOTE 22 yo at 24+1 weeks presents to L&D with the complaint of n/v and diarrhea since last night after she ate chicken nuggets from [employer]. She reports vomiting multiple episodes of vomiting today and she was even unable to tolerate water. In addition, she endorses right upper quadrant pain. She denies any fevers/chills. She also denies any recent travel, sick contacts. She denies any obstetric complaints to include vaginal bleeding, leakage of fluid, discharge, or contractions. She endorses movement. Vitals - VSS, afebrile, normotensive, non tachycardic General - AAOX3, laying in bed, NAD Abdomen - Gravid uterus, no fundal tenderness to palpation in RUQ. No tenderness in RLQ quadrant or anywhere in the lower pelvis. Extremities - No edema. FHR: 150 HR Labs: CBC - 13.9>11.4/33.8<228 BMP - 138/3.8--108/25--7/0.57<79 AST/ALT - Rads: RUQ US - Negative for gallbladder or biliary disease. Ms. Aleman received IV fluids and IV zofran in triage with significant improvement in symptoms. She had no vomiting in triage and became very hungry. Suspect likely viral GI syndrome. No evidence of acute bacterial infection. Negative RUQ US. Reassuring status. Patient discharged home with return precautions. Venancio, DO A-FIB/CHADSVASC A-FIB History Current/History of A-Fib/PAF?: No VS,Fishbone, I+O VS, Fishbone, I+O Laboratory Tests 11/04/18 17:59 Red Blood Count 3.49 L, Mean Corpuscular Volume 96.8 H, Mean Corpuscular Hemoglobin 32.7, Mean Corpuscular Hemoglobin Concent 33.7, Red Cell Distribution Width 13.3, Calcium Level 8.1 L, Aspartate Amino Transf (AST/SGOT) 17, Alanine Aminotransferase (ALT/SGPT) 19, Alkaline Phosphatase 83, Total Bilirubin 0.1 L, Total Protein 7.0, Albumin 3.0 L Vital Signs Date Time Temp Pulse Resp B/P (MAP) Pulse Ox O2 Delivery O2 Flow Rate FiO2 11/04/18 18:10 97.6 83 18 122/64 (83) AB OCHOA DO Nov 04, 2018 19:43
[2018-11-04 20:20] VITALS: BP 120/74
--- NOTE | 2018-11-05 07:27 | REP ---
REASON: Right upper quadrant pain. COMPARISON: None. Multiple ultrasonographic images of the liver show the hepatic parenchymal echo pattern to be within normal limits. There is no mass or ductal dilatation. The common bile duct measures 3 mm. Multiple sonographic images of the gallbladder show no abnormalities. There is no abnormal gallbladder wall thickening or pericholecystic edema. There are no choleliths. The imaged portion of the pancreas and right kidney are unremarkable. IMPRESSION: Normal exam. Electronically Signed by Imtiaz Berumen DO 11/05/2018 04:30 P
== END 2018-11-04 20:30 | disposition home or self-care (01) ==
LOC: M LDO 16:34
PROVIDERS: ATTEND Obstetrics & Gynecology
DX: O99.89 Other specified diseases and conditions complicating pregnancy, childbirth and the puerperium (principal); Z3A.24 24 weeks gestation of pregnancy; R11.2 Nausea with vomiting, unspecified; R19.7 Diarrhea, unspecified
CPT/HCPCS: 36415; 76705; 80053; 85027; 96374; 96375; G0378; G0463; J2405

== ENCOUNTER 2018-12-26 19:38 | Outpatient (CLI) | payer OTHER ==
[~2018-12-26] VITALS: Ht 160 cm; Wt 91.0 kg
[~2018-12-26 19:38] MED LIST changes: +TRAZ1TAB11 PO; -TRAZ25TA PO
[2018-12-26 19:57] VITALS: BP 113/69
--- NOTE | 2018-12-26 20:43 | IPNPDOC ---
Text Note Date of Service The patient was seen on 12/26/18. NOTE 23 yo at 31+4 weeks gestation presented to L&D with the complaint of decreased movement and intermittent back pain. She reports not feeling her baby move much today at all. In addition, she reports fairly constant back pain that makes it difficult to sleep. She reports spotting earlier, but not further bleeding. She also denies any contractions, discharge, or leakage of fluid. Vitals - VSS, afebrile, normotensive, non tachycardic General - AAOX3, sitting up in bed, NAD Abdomen - Gravid uterus, no fundal tenderness Back exam - No CVA tenderness. no flank tenderness. Mild tenderness to palpation at lumbosacral junction. Extremities - No edema FHR tracing - Cat I with moderate variability, +accels, no decels. No ctx on monitor. Bedside limited TAUS (anatomy not assessed): Viable SIUP. +FCA. DORI 17.4cm. +gross movement. NST reactive and TAUS findings reassuring. Patient was reassured in triage. Back pain likely MSK. Recommended maternity belt, heating pads, Tylenol. Follow up at next OB appointment as scheduled. Return to care sooner for any urgent concerns. All questions answered. DO JAIR Schaffer,Lizzie, I+O VS, Lizzie, I+O Vital Signs Date Time Temp Pulse Resp B/P (MAP) Pulse Ox O2 Delivery O2 Flow Rate FiO2 12/26/18 19:57 98.6 86 18 113/69 (84) AB OCHOA DO Dec 26, 2018 20:42
== END 2018-12-26 20:45 | disposition home or self-care (01) ==
LOC: M LDO 19:38
PROVIDERS: ATTEND Obstetrics & Gynecology
DX: O36.8130 Decreased fetal movements, third trimester, not applicable or unspecified (principal); O26.893 Other specified pregnancy related conditions, third trimester; M54.9 Dorsalgia, unspecified; Z3A.31 31 weeks gestation of pregnancy
CPT/HCPCS: 59025; 76815; G0378; G0463

== ENCOUNTER 2019-01-13 06:20 | Emergency (ER) | payer OTHER ==
[~2019-01-13] VITALS: Ht 160 cm; Wt 81.8 kg
[2019-01-13] MEDS ORDERED: RANI150T14 (06:26)
--- NOTE | 2019-01-13 07:53 | REP ---
Right foot series: Four views. History: Right foot pain. Rule out fracture. Findings: Four views of the right foot demonstrate an os naviculare. Overall mineralization pattern is normal. There is no visible fracture or subluxation. Impression: No acute bony abnormality. Electronically Signed by Kaleb Mccarthy MD 01/13/2019 07:45 A
[2019-01-13 08:59] VITALS: BP 126/78
== END 2019-01-13 09:00 | disposition home or self-care (01) ==
LOC: M ED 06:20
DX: S90.31XA Contusion of right foot, initial encounter (principal); W50.0XXA Accidental hit or strike by another person, initial encounter; Y92.830 Public park as the place of occurrence of the external cause; Y93.9 Activity, unspecified; Z3A.34 34 weeks gestation of pregnancy; Z88.8 Allergy status to other drugs, medicaments and biological substances; Z91.048 Other nonmedicinal substance allergy status

== ENCOUNTER 2019-01-29 06:41 | Outpatient (CLI) | payer OTHER ==
[~2019-01-29] VITALS: Ht 160 cm; Wt 96.7 kg
[~2019-01-29 06:41] MED LIST changes: +RANI150T14
[2019-01-29 06:52] VITALS: BP 129/75
--- NOTE | 2019-01-29 07:21 | IPNPDOC ---
Text Note Date of Service The patient was seen on 01/29/19. NOTE 23 yo at 36+3 weeks presents to L&D with the complaint of decreased movement and intermittent contractions and pelvic pressure. She reports feeling movement, just not as much as usual. She started cramping after having intercourse yesterday evening. She denies any vaginal bleeding or leakage of fluid. Chaperoned by L&D RN Vitals - VSS, afebrile, normotensive, non tachycardic General - AAXO3, sitting up in bed, NAD Abdomen - Gravid uterus, no fundal tenderness Cervix - FT/50/-3. FHR Tracing - Reactive NST with moderate variability, +accels, no decels, Cat I. Sporadic ctx. Patient not in labor. status reassuring. She felt movement in triage and was reassured. Discharged home with return precautions. DO Venancio VS,Lizzie, I+O VS, Shantbone, I+O Vital Signs Date Time Temp Pulse Resp B/P (MAP) Pulse Ox O2 Delivery O2 Flow Rate FiO2 01/29/19 06:52 98.3 90 129/75 (93) AB OCHOA DO Jan 29, 2019 07:21
== END 2019-01-29 07:10 | disposition home or self-care (01) ==
LOC: M LDO 06:41
PROVIDERS: ATTEND Obstetrics & Gynecology
DX: O36.8131 Decreased fetal movements, third trimester, fetus 1 (principal); O26.893 Other specified pregnancy related conditions, third trimester; R10.2 Pelvic and perineal pain; Z3A.36 36 weeks gestation of pregnancy
CPT/HCPCS: 59025; G0378; G0463

== ENCOUNTER 2019-02-11 22:42 | Outpatient (CLI) | payer OTHER ==
[~2019-02-11] VITALS: Ht 160 cm; Wt 97.0 kg
[2019-02-11 22:55] VITALS: BP 162/95
[2019-02-11 23:12] VITALS: BP 142/82
== END 2019-02-11 23:33 | disposition home or self-care (01) ==
LOC: M LDO 22:42
PROVIDERS: ATTEND Obstetrics & Gynecology
DX: O47.1 False labor at or after 37 completed weeks of gestation (principal); Z3A.38 38 weeks gestation of pregnancy
CPT/HCPCS: 59025; G0378; G0463

== ENCOUNTER 2019-02-16 15:16 | Outpatient (CLI) | payer OTHER ==
[~2019-02-16] VITALS: Ht 160 cm; Wt 98.0 kg
[2019-02-16 15:36] VITALS: BP 127/82
--- NOTE | 2019-02-16 17:30 | IPNPDOC ---
Text Note Date of Service The patient was seen on 02/16/19. NOTE 23yo at 39w0d by LMP c/w 8wk US, presents c/o n/v for the last 48 hours. Has had decreased appetite and is overall uncomfortable. Denies fevers, abd pain, diarrhea/constipation, urinary symptoms, vb, ctx, lof. Last emesis was at 11am, has not tried to have any fluids or food since then. +FM PMH: denies PSH: breast reduction, wisdom teeth, hip surgery Meds: PNV ALL: reglan, nickel SH: denies tob/alc/illicit drug use Vitals wnl Gen WDWN, NAD. Dry mucous membranes Abd soft, non-tender Back no CVAT Ext no edema ([place]) SCE: 1/80/-1 (very anterior behind pubic symphysis) NST: reactive, no decels Bovill: no ctx UA (dip): Spec grav 1.010, LE +2, Nitrite neg WBC/RBC neg A/P: Likely normal discomforts of term vs. gastroenteritis. Tolerated PO fluids in triage without nausea or emesis, felt hungry by the time of dicharge. No e/o UTI, infection, labor. status reassuring. Pt requested nausea medicine to help with hydration. Answered multiple questions regarding indications and timing of induction of labor. -Rx for zofran -Return precautions discussed -Keep f/u appointment this week -Med rec completed MD ELISE Núñez TONI M. MD Feb 16, 2019 17:30
== END 2019-02-16 17:05 | disposition home or self-care (01) ==
LOC: M LDO 15:16
PROVIDERS: ATTEND General Practice
DX: O21.2 Late vomiting of pregnancy (principal); Z3A.39 39 weeks gestation of pregnancy
CPT/HCPCS: 59025; G0378; G0463

== ENCOUNTER 2019-02-19 21:26 | Outpatient (CLI) | payer OTHER ==
[~2019-02-19] VITALS: Ht 160 cm; Wt 97.3 kg
[2019-02-19 21:46] VITALS: BP 161/87
[2019-02-19 22:04] VITALS: BP 125/73
== END 2019-02-19 23:20 | disposition home or self-care (01) ==
LOC: M LDO 21:26
PROVIDERS: ATTEND Obstetrics & Gynecology
DX: O26.893 Other specified pregnancy related conditions, third trimester (principal); N89.8 Other specified noninflammatory disorders of vagina; O47.1 False labor at or after 37 completed weeks of gestation; Z3A.39 39 weeks gestation of pregnancy
CPT/HCPCS: 59025; G0378; G0463

== ENCOUNTER 2019-02-22 13:53 | Outpatient (CLI) | payer OTHER ==
[~2019-02-22] VITALS: Ht 160 cm; Wt 98.2 kg
[2019-02-22 14:13] VITALS: BP 113/55
[2019-02-22] MEDS ORDERED: MAPA500T2 PO (14:48)
[2019-02-22 14:51] VITALS: BP 120/75
--- NOTE | 2019-02-23 11:23 | HPE ---
DATE OF ADMISSION: 02/22/2019 Keli is a 23-year-old female, 1, para 0, with an expected date of confinement (EDC) of 02/23/2019, estimated gestational age (EGA) 39-6/7 weeks gestation who presented to labor and delivery with complaints of contractions every 4-5 minutes. She was here earlier and discharged home. She then presented with increased contractions. Upon evaluation, she was found to be 3-4 cm dilated, was very uncomfortable and at this point a decision was made for admission. Her record was reviewed which was essentially unremarkable. LABS: Blood type is A+, rubella immune, hepatitis negative, HIV negative, GC and chlamydia negative. 1-hour sugar testing was 138. Her 3 hours was within normal limits. GBS is negative. PAST MEDICAL HISTORY: Denies. PAST SURGICAL HISTORY: Denies. SOCIAL HISTORY: Denies any alcohol, drugs or cigarette smoking. REVIEW OF SYSTEMS: Unremarkable. MEDICATIONS: vitamin. ALLERGIES: No known drug allergies. PHYSICAL EXAMINATION ON ADMISSION: HEENT was within normal limits. Abdomen soft, nontender, nondistended. Extremities: No clubbing, cyanosis or edema. Vaginal Exam done by RN: 3-4 cm dilated, 100% percent effaced, fetus at -3 station, vertex position, intact. Tracing reviewed, category one tracing. ASSESSMENT: Intrauterine at 39-6/7 weeks gestation in labor. PLAN: Admit to labor and delivery. Routine labs sent. Pain management discussed. The patient opts for an epidural. Will continue to monitor. Anticipate delivery.
== END 2019-02-22 18:13 | disposition home or self-care (01) ==
LOC: M LDO 13:53
PROVIDERS: ATTEND Advanced Practice Midwife
DX: O26.893 Other specified pregnancy related conditions, third trimester (principal); O47.1 False labor at or after 37 completed weeks of gestation; Z3A.39 39 weeks gestation of pregnancy
CPT/HCPCS: 59025; G0378; G0463

== ENCOUNTER 2019-02-22 20:27 | Inpatient (IN) | payer OTHER ==
[2019-02-22] VITALS (15 sets, daily range): BP systolic 133–152; BP diastolic 71–89
[~2019-02-22] VITALS: Ht 160 cm; Wt 98.2 kg
[~2019-02-22 20:27] MED LIST changes: +MAPA500T2 PO
[2019-02-22] MEDS ORDERED: LACTATED RINGER'S 1000 ML IV STA (20:51)
[2019-02-22] MEDS ORDERED: LR 1,000 ML IV SCH (20:51)
[2019-02-22 21:25] LABS: HEMATOCRIT 33.2 % (36.0-47.0); HEMOGLOBIN 11.1 g/dl (12.0-15.5); MEAN CORPUSCULAR HEMOGLOBIN 30.6 pg (27.0-33.0); MEAN CORPUSCULAR HGB CONC 33.4 g/dl (32.0-36.5); MEAN CORPUSCULAR VOLUME 91.5 fl (80.0-96.0); PLATELET COUNT, AUTOMATED 207 10^3/uL (150-450); RED BLOOD COUNT 3.63 10^6/uL (4.00-5.40); WHITE BLOOD COUNT 18.9 10^3/uL (4.0-10.0)
[2019-02-22] MEDS ORDERED: FENTANYL 2MCG/ML ROPIVACAINE 0.2% IN 0.9% NACL 100ML IVBAG As Ordered ONE (22:00)
[2019-02-22] MEDS ORDERED: ONDANSETRON 4MG/2ML VIAL (J2405) As Ordered ONE (22:32)
[2019-02-22] MEDS ORDERED: ONDANSETRON 4MG/2ML VIAL (J2405) IV ONE (22:45)
[2019-02-23] VITALS (20 sets, daily range): BP systolic 113–209; BP diastolic 60–117
[2019-02-23] MEDS ORDERED: LACTATED RINGER'S 1000 ML IV PRN (01:30)
[2019-02-23] MEDS ORDERED: diphenhydrAMINE INJ 50MG/ML VIAL (J1200) IV PRN (01:30)
[2019-02-23] MEDS ORDERED: REFRIGERATOR IV KEYS XX PRN (01:30)
[2019-02-23] MEDS ORDERED: FENTANYL/ROPIVACAINE/NACL BAG 100 ML EPIDURAL SCH (01:30)
[2019-02-23] MEDS ORDERED: EPIDURAL/PCA KEYS XX PRN (01:30)
[2019-02-23] MEDS ORDERED: EPIDURAL COMMENT XX SCH (01:30)
[2019-02-23] MEDS ORDERED: ePHEDrine SULFATE 25 MG/5 ML(5MG/ML) SYRINGE IV PRN (01:30)
[2019-02-23] MEDS ORDERED: ONDANSETRON 4MG/2ML VIAL (J2405) IV PRN (01:30)
[2019-02-23] MEDS ORDERED: NALOXONE INJ 0.4 MG/1 ML VIAL (J2310) IV PRN (01:30)
[2019-02-23] MEDS ORDERED: OXYTOCIN 30 UNITS IN 0.9% NaCl 500ML IV BAG (J2590) As Ordered ONE (02:17)
[2019-02-23] MEDS ORDERED: OXYTOCIN DRIP 30 UNITS in APPROPRIATE DILUENT 1 EA IV SCH (03:21)
[2019-02-23] MEDS ORDERED: DIBUCAINE 1% OINTMENT 30GM TOP PRN (03:30)
[2019-02-23] MEDS ORDERED: IBUPROFEN 600 MG TAB PO PRN (03:30)
[2019-02-23] MEDS ORDERED: ACETAMINOPHEN TAB 650MG DOSE (2X325MG) PO PRN (03:30)
[2019-02-23] MEDS ORDERED: METHYLERGONOVINE MALEATE 0.2 MG TAB PO PRN (03:30)
[2019-02-23] MEDS ORDERED: RHOGAM 300 MCG (1500 IU) INJ (J2790) IM SCH (03:30)
[2019-02-23] MEDS ORDERED: ANUSOL HC CREAM 30GM TOP PRN (03:30)
[2019-02-23] MEDS ORDERED: MEASLES,MUMPS,RUBELLA VACCINE INJ (MMR-II) (90707) SC SCH (03:30)
[2019-02-23 03:48] LABS: CORD GAS ABE V -5.5; CORD GAS HCO3 V 21.7 MEQ/L; CORD GAS O2 SAT V 61.4 %; CORD GAS PCO2 V 47.9 mmHg; CORD GAS PH V 7.274 UNITS; CORD GAS PO2 V 28.8 mmHg; CORD GAS SBC V 19.1 MEQ/L; CORD GAS TCO2 V 23.2 MEQ/L
[2019-02-23 03:49] LABS: CORD GAS ABE A -3.9; CORD GAS HCO3 A 25.6 MEQ/L; CORD GAS O2 SAT A 30.4 %; CORD GAS PCO2 A 63.9 mmHg; CORD GAS PH A 7.22 UNITS; CORD GAS PO2 A 18.3 mmHg; CORD GAS SBC A 19.5 MEQ/L; CORD GAS TCO2 A 27.5 MEQ/L
[2019-02-23] MEDS: ACETAMINOPHEN 500 MG TAB PO PRN ×2 (03:59→09:46)
[2019-02-23] MEDS: PRENATAL VITAMINS CHEWABLE TABLET PO SCH (09:46)
[2019-02-23] MEDS: DOCUSATE SODIUM 100 MG CAP PO SCH ×2 (09:46→20:00)
--- NOTE | 2019-02-23 14:19 | IPN ---
DATE: 02/23/2019 This patient requested circumcision of her male after discussing risks and benefits of circumcision, the medical and nonmedical indications, penile block and aftercare. Expressed understanding of penile block aftercare, and bleeding. Signed the consent form. All questions were answered. 20-minute discussion. We await the clearance by the dental technology advisor.
[2019-02-23] MEDS: IBUPROFEN 800 MG TAB PO PRN (19:59)
[2019-02-23] MEDS: buPROPion **XL** TABLET 150MG (WELLBUTRIN XL) PO SCH (20:00)
[2019-02-23] MEDS: diphenhydrAMINE 50 MG CAP PO PRN (22:02)
[2019-02-24] MEDS: IBUPROFEN 800 MG TAB PO PRN (05:22)
[2019-02-24 05:44] VITALS: BP 121/63
[2019-02-24] MEDS: ACETAMINOPHEN 500 MG TAB PO PRN (08:56)
[2019-02-24] MEDS: PRENATAL VITAMINS CHEWABLE TABLET PO SCH (08:57)
[2019-02-24] MEDS: buPROPion **XL** TABLET 150MG (WELLBUTRIN XL) PO SCH (08:57)
[2019-02-24] MEDS: DOCUSATE SODIUM 100 MG CAP PO SCH ×2 (08:57→22:29)
[2019-02-24 18:00] VITALS: BP 139/70
--- NOTE | 2019-02-24 18:21 | IPNPDOC ---
Progress Note Date of Service: Feb 24, 2019 Day#: 1 Progress Note SUBJECT: Ms. Roque is a 23yo G1 now P1 s/p uncomplicated at 40+0wks at 0307 on [id number] of a male , 6lbs 12oz; PP Day #1. She has been ambulating, voiding spontaneously without issue and tolerating regular diet. Reports lochia is continuing to lighten. Pt reports that she is having difficulty , but now reveals that she had a breast reduction surgery as a teenager and knows that she may not be able to breastfeed. currently in NICU d/t temp and glucose instability. OBJECTIVE: VITAL SIGNS: Within normal limits, afebrile. Alert and oriented times three. Abdomen: Fundus firm at U. Soft, NTTP. Minimal Lochia Breast exam reveals inverted T incision sites bilaterally: around edges of a reola, vertically from areola down to breast crease, and along breast crease underneath breast. ASSESSMENT: PP Day #1, normal involution, stable and progressing well. Feeding in NICU; unable to express breastmilk. PLAN: 1. Routine PP Care. 2. Tylenol and Motrin for pain. 3. Encourage frequent and ambulation. 4. Encourage pumping q 2-3 hours. If unable to express any milk, will request referral for donated breastmilk. VS, I&O, 24H, Fishbone Vital Signs/I&O Vital Signs Date Time Temp Pulse Resp B/P (MAP) Pulse Ox O2 Delivery O2 Flow Rate FiO2 02/24/19 18:00 97.7 83 18 139/70 (93) I&O- Last 24 Hours up to 6 AM 02/24/19 06:00 Output Total 600 ml Balance -600 ml MAIDA MEDRANO CNM Feb 24, 2019 18:12
--- NOTE | 2019-02-24 20:06 | DN ---
DATE: 02/23/2019 Keli is a 23-year-old female 1, para 0 who was admitted at 39-6/7 weeks gestation in labor. She progressed to fully dilated. She had artificial rupture of membrane at approximately fully dilated with meconium-stained fluid. She then pushed and delivered a live male in right occiput anterior position, scores 7 and 8, weight 6 pounds, 12 ounces. Placenta delivered spontaneously intact, three-vessel cord. Perineum, vagina and cervix inspected. Small vaginal abrasions noted. No sutures needed. Estimated blood loss 300 mL. Both mother and baby in stable condition.
[2019-02-24] MEDS: diphenhydrAMINE 50 MG CAP PO PRN (22:29)
[2019-02-25 05:58] VITALS: BP 119/66
[2019-02-25] MEDS: IBUPROFEN 800 MG TAB PO PRN (06:33)
[2019-02-25] MEDS ORDERED: IBUP80TA PO (07:58)
[2019-02-25] MEDS: DOCUSATE SODIUM 100 MG CAP PO SCH (08:22)
[2019-02-25] MEDS: PRENATAL VITAMINS CHEWABLE TABLET PO SCH (08:22)
[2019-02-25] MEDS: buPROPion **XL** TABLET 150MG (WELLBUTRIN XL) PO SCH (08:22)
[2019-02-26] MEDS ORDERED: WELLTAB38 PO (13:16)
== END 2019-02-25 10:45 | disposition home or self-care (01) | DRG 807 ==
LOC: M LDO 20:27 → M LDI 20:50 → M OBS 02-23 05:49
PROVIDERS: ADMIT Obstetrics & Gynecology; ATTEND Obstetrics & Gynecology
PROC: 10E0XZZ Delivery of Products of Conception, External Approach (ICD-10-PCS; principal; 2019-02-23)
PROC: 10907ZC Drainage of Amniotic Fluid, Therapeutic from Products of Conception, Via Natural or Artificial Opening (ICD-10-PCS; 2019-02-23)
DX: O77.0 Labor and delivery complicated by meconium in amniotic fluid (principal); Z37.0 Single live birth; Z3A.39 39 weeks gestation of pregnancy

== ENCOUNTER 2019-02-26 11:52 | Inpatient (IN) | payer OTHER ==
[~2019-02-26] VITALS: Ht 160 cm; Wt 94.0 kg
[~2019-02-26 11:52] MED LIST changes: +IBUP80TA PO
[2019-02-26 13:00] VITALS: BP 158/88
[2019-02-26] MEDS ORDERED: WELLTAB38 PO (13:16)
[2019-02-26] MEDS ORDERED: PERCOCET 5MG/325MG TAB PO PRN ×2 (14:00)
[2019-02-26] MEDS ORDERED: LIDOCAINE 5% OINT 30 GM TOP PRN (14:45)
[2019-02-26 15:08] LABS: HEMATOCRIT 30.7 % (36.0-47.0); HEMOGLOBIN 9.9 g/dl (12.0-15.5); MEAN CORPUSCULAR HEMOGLOBIN 30.4 pg (27.0-33.0); MEAN CORPUSCULAR HGB CONC 32.2 g/dl (32.0-36.5); MEAN CORPUSCULAR VOLUME 94.2 fl (80.0-96.0); PLATELET COUNT, AUTOMATED 202 10^3/uL (150-450); RED BLOOD COUNT 3.26 10^6/uL (4.00-5.40); WHITE BLOOD COUNT 10.2 10^3/uL (4.0-10.0)
[2019-02-26] MEDS: PIPERACILLIN/TAZOBACTAM SOD 3.375 GM in D5W MINI-BAG PLUS 50 ML IV SCH ×2 (15:13→22:14)
[2019-02-26 15:22] LABS: BLOOD UREA NITROGEN 10 MG/DL (7-18); CALCIUM LEVEL 8.8 MG/DL (8.5-10.1); CARBON DIOXIDE LEVEL 28 MEQ/L (21-32); CHLORIDE LEVEL 106 MEQ/L (98-107); CREATININE FOR GFR 0.73 MG/DL (0.55-1.30); GLOMERULAR FILTRATION RATE > 60.0 (>60); GLUCOSE, FASTING 98 MG/DL (70-100); POTASSIUM SERUM 3.7 MEQ/L (3.5-5.1); SODIUM LEVEL 138 MEQ/L (136-145)
[2019-02-26] MEDS: buPROPion **XL** TABLET 150MG (WELLBUTRIN XL) PO SCH (17:14)
[2019-02-26] MEDS: ACYCLOVIR 200 MG CAPSULE PO SCH ×2 (17:14→23:23)
[2019-02-26] MEDS: IBUPROFEN 800 MG TAB PO PRN (19:19)
[2019-02-26 19:30] VITALS: BP 156/85
[2019-02-26 22:00] VITALS: BP 138/79
[2019-02-27] MEDS: PIPERACILLIN/TAZOBACTAM SOD 3.375 GM in D5W MINI-BAG PLUS 50 ML IV SCH ×3 (04:42→16:16)
[2019-02-27] MEDS: ACYCLOVIR 200 MG CAPSULE PO SCH ×3 (05:20→17:44)
[2019-02-27] MEDS: IBUPROFEN 800 MG TAB PO PRN (05:21)
[2019-02-27 06:00] VITALS: BP 142/90
[2019-02-27 08:00] VITALS: BP 145/95
[2019-02-27] MEDS: buPROPion **XL** TABLET 150MG (WELLBUTRIN XL) PO SCH (10:30)
--- NOTE | 2019-02-27 13:57 | HPE ---
DATE OF ADMISSION: 02/26/2019 This is a 22-year-old 1, para 1 who delivered a week ago and was being kept as a boarder while her baby was in the intensive care unit (NICU) for low blood sugars, etiology unknown. She was complaining as a boarder mother that she was having difficulty in voiding with painful urination on her vulvar area. She could not sit or stand and it was very painful. She actually had to stand and hold her labial open in order to be able to void. She also had difficulty in that she had significant mastitis bilateral with ducts being plugged bilaterally and she also has a history of depression for which she has been treated with Wellbutrin. On physical examination today, she appears distressed because of the pain in her labia as well as in her breasts. She weighs 204 pounds. She is 5 feet, 3 inches. Blood pressure is 142/75, pulse is 83, temperature was 99.1. She has had some midrange blood pressures but this may be related to the painful experience that she is having now. She has also complained of considerable constipation. She presently describes her pain as 6/10. On examination of the vulvar area, we find that there is lochia which is normal. It is not foul odor. It is a reasonable type of lochia that she has had throughout. On her right side, she does not have any abrasions or tears, but on the left side, she has what appears to be an abrasion but also appears to be an open vesicle and there are some early vesicles but there is a bit of an ulceration with inflammatory process almost like a linear aspect and there is one area that is a bit crusted over. In reviewing her lymph nodes on that side, they are tender and this may be related either to the possibility of an herpes simplex virus (HSV) infection or because of her . We had discussed with her both type 1 and type 2, in which type 1 is the oral and type 2 is the genital area, and 85% of people in the world have been infected with at least one type. She herself admits that she had a cold sore on her oral lip at one time, although we did not disclose as to when that was. We did a culture from that area to see if there was any positive viral particles at the present time. However, that will not be back for several days. Based on the past history and the high possibility of a type 2, we elected to treat her prophylactically. We also evaluated her breasts bilaterally. She has had a breast reduction and in the areolar area, we can see swelling and irritation. She cannot let down any milk because the mild ducts are plugged. She has some circular areas on the outer right and left quadrants which are hot, red and tender, and the possibility besides engorgement of mastitis is significant. We therefore in discussion with her elected to admit her, hydrate her, start her on IV antibiotics for her mastitis, start her on prophylactic antivirals, give her something for pain management, local anesthetic to the area so that she can void. As far as the breast tissue, we have ordered a large dent with hot water for her to dip the breasts in and get them soft enough that hand milking can occur and possibly allow the ducts to open. The patient expressed some anxiety about being removed from the maternity floor. However, she was only a boarder and therefore, we have admitted her to the pediatric floor so that she can be close to her baby in the intensive care unit (NICU). The rest of the examination is unremarkable. She is normocephalic, atraumatic. Neck: Full range of motion. Pupils were equal and reactive to light. Distal pulses are symmetric. No evidence of deep vein thrombosis (DVT), pulmonary embolism (PE) or superficial phlebitis. Chest is clear bilaterally to bases. No wheezes or rhonchi. Abdomen: Soft, uterus 2 below. Lochia is moderate. Four quadrant bowel sounds are noted. Perineum as described before as was the vulvar area. She has a lesion on the vulva. No rash. She does have pain on touching that area, as scored 6/10. She has no incontinence, urgency or frequency. She does have constipation. No diarrhea. She agreed to the plan of management. We have admitted her and we will start her on her antibiotic therapy. Continue with her antidepressant medication. NICU has been notified and they will take the appropriate precautions.
[2019-02-27 14:00] VITALS: BP 151/93
[2019-02-27] MEDS ORDERED: PERCOCET PO (17:31)
[2019-02-27] MEDS ORDERED: ACYC200C8 PO (17:31)
[2019-02-27] MEDS ORDERED: IBUP80TA PO (17:31)
[2019-02-27] MEDS ORDERED: LIDO5OIN19 TOP (17:31)
--- NOTE | 2019-02-28 14:30 | DSES ---
DATE OF ADMISSION: 02/26/2019 DATE OF DISCHARGE: 02/27/2019 This lady was admitted several days because of bilateral mastitis, inability to void, labial lacerations, questionable herpes simplex virus (HSV) lesion, and she was put prophylactically on acyclovir, Zosyn for her bilateral mastitis, and lidocaine ointment to apply to the vulvar in order for to be able to void. LABORATORY VALUES: Her CBC: Her hemoglobin was 9.9, hematocrit 30.7, white count was 10.2. Her chemistry was all within normal. GFR was normal. Fasting glucose was normal 12 as well as her electrolytes. Her vital signs were labile, elevated to midrange blood pressure because of her extreme anxiety over the situation, and she was at times inconsolable in regard to her situation, which reflected in her blood pressure. She was afebrile throughout. Her temperature on discharge is 97.5. Her pulse is 99, respirations are 18, and her blood pressure on discharge was 151/93. PHYSICAL EXAMINATION: The breasts were completely resolving on the antibiotic therapy. She no longer had any redness or irritation in the other quadrants. She was deathly not able to breastfeed, as she had had a breast reduction with nipple removal, although despite the fact she was told by the people that she should try, this added to her anxiety and stress level. The rest of the examination was unremarkable. She was normocephalic, atraumatic. Neck: Full range of motion. Pupils equal and reactive to light. Distal pulses symmetric. No evidence of deep vein thrombosis (DVT), pulmonary embolism (PE), or superficial phlebitis. Chest was clear bilaterally to bases. No wheezes or rhonchi. No costovertebral angle (CVA) tenderness. Uterus 2 below. Lochia is moderate. Four-quadrant bowel sounds are noted. The patient had an active bowel movement today. She is not complaining of nausea, vomiting, diarrhea or constipation, urgency, or frequency. No complaints of joint pain, visual disturbances, right upper quadrant pain. She is voiding, and she is passing gas, and has had a bowel movement today. We have discharged her today to followup in the office in 7 days' time. Her medications are at [place]. She will receive her last dose of antibiotics here at the hospital prior to discharge. All questions were answered. We had a 20-minute discussion regarding managed care for her mastitis and her vulvar laceration, including sitz bath, blow dry, and the local analgesics for prevoid. The patient expressed understanding and was discharged improved.
== END 2019-02-27 17:50 | disposition home or self-care (01) | DRG 776 ==
LOC: M PED 12:25
PROVIDERS: ADMIT Obstetrics & Gynecology; ATTEND Obstetrics & Gynecology
DX: O91.22 Nonpurulent mastitis associated with the puerperium (principal); O98.33 Other infections with a predominantly sexual mode of transmission complicating the puerperium; A60.09 Herpesviral infection of other urogenital tract

== ENCOUNTER 2019-06-23 17:16 | Emergency (ER) | payer OTHER ==
[~2019-06-23] VITALS: Ht 160 cm; Wt 93.1 kg
[~2019-06-23 17:16] MED LIST changes: +ACYC200C8 PO; +LIDO5OIN19 TOP; +PERCOCET PO; -RIZA10TA4; +RIZA10TA58; +WELLTAB38 PO
[2019-06-23] MEDS ORDERED: [UNRECOGNIZED DRUG - CODE] PO (17:24)
[2019-06-23 18:59] LABS: INFLUENZA A AMPLIFICATION NEGATIVE (NEGATIVE); INFLUENZA B AMPLIFICATION POSITIVE (NEGATIVE)
[2019-06-23 19:14] VITALS: BP 133/95
[2019-06-23] MEDS ORDERED: BENZ200C70 PO (19:14)
[2019-06-23] MEDS ORDERED: ONDA4TAB6 PO (19:14)
== END 2019-06-23 19:19 | disposition home or self-care (01) ==
LOC: M ED 17:16
DX: J10.89 Influenza due to other identified influenza virus with other manifestations (principal); F33.9 Major depressive disorder, recurrent, unspecified; Z79.899 Other long term (current) drug therapy; Z88.8 Allergy status to other drugs, medicaments and biological substances; Z91.048 Other nonmedicinal substance allergy status; F17.200 Nicotine dependence, unspecified, uncomplicated

== ENCOUNTER 2019-09-08 17:02 | Emergency (ER) | payer OTHER ==
[~2019-09-08] VITALS: Ht 160 cm; Wt 90.9 kg
[~2019-09-08 17:02] MED LIST changes: +BENZ200C70 PO; +ONDA4TAB6 PO; -TRAZ-163; +TRAZ-257; +[UNRECOGNIZED DRUG - CODE] PO
[2019-09-08 20:26] LABS: BASO # 0.1 10^3/uL (0.0-0.2); BASO % 0.5 % (0.0-1.0); EOS # 0.1 10^3/uL (0.0-0.5); EOS % 0.9 % (0.0-3.0); HEMATOCRIT 37.6 % (36.0-47.0); HEMOGLOBIN 11.8 g/dl (12.0-15.5); LYMPH # 2.5 10^3/uL (1.5-5.0); LYMPH % 25.1 % (24.0-44.0); MEAN CORPUSCULAR HEMOGLOBIN 28.1 pg (27.0-33.0); MEAN CORPUSCULAR HGB CONC 31.4 g/dl (32.0-36.5); MEAN CORPUSCULAR VOLUME 89.5 fl (80.0-96.0); MONO # 0.7 10^3/uL (0.0-0.8); MONO % 6.9 % (0.0-5.0); NEUTROPHILS # 6.7 10^3/uL (1.5-8.5); NEUTROPHILS % 66.3 % (36.0-66.0); PLATELET COUNT, AUTOMATED 288 10^3/uL (150-450)
[2019-09-08 20:47] LABS: BLOOD UREA NITROGEN 12 MG/DL (7-18); CALCIUM LEVEL 9.2 MG/DL (8.5-10.1); CARBON DIOXIDE LEVEL 28 MEQ/L (21-32); CHLORIDE LEVEL 107 MEQ/L (98-107); CREATININE FOR GFR 0.75 MG/DL (0.55-1.30); GLOMERULAR FILTRATION RATE > 60.0 (>60); GLUCOSE, FASTING 94 MG/DL (70-100); POTASSIUM SERUM 3.9 MEQ/L (3.5-5.1); SODIUM LEVEL 140 MEQ/L (136-145)
[2019-09-08 20:48] LABS: HCG, SERUM QUALITATIVE NEGATIVE (NEGATIVE)
[2019-09-08 22:24] LABS: CHLAMYDIA DNA AMPLIFICATION NEGATIVE (NEGATIVE); GC DNA AMPLIFICATION NEGATIVE (NEGATIVE)
[2019-09-08] MEDS ORDERED: FLUCONAZOLE 50MG TABLET PO ONE (22:45)
[2019-09-08] MEDS ORDERED: FLUC150T PO (22:51)
[2019-09-08 23:00] VITALS: BP 135/76
== END 2019-09-08 23:09 | disposition home or self-care (01) ==
LOC: M ED 17:02
DX: B37.3 Candidiasis of vulva and vagina (principal); F17.290 Nicotine dependence, other tobacco product, uncomplicated; Z88.8 Allergy status to other drugs, medicaments and biological substances; Z91.048 Other nonmedicinal substance allergy status

== ENCOUNTER 2020-05-30 13:20 | Emergency (ER) | payer OTHER ==
[~2020-05-30] VITALS: Ht 160 cm; Wt 87.0 kg
[2020-05-30 13:20] VITALS: BP 133/67
[~2020-05-30 13:20] MED LIST changes: +FLUC150T PO
[2020-05-30] MEDS ORDERED: NEXP1IMP SC (13:31)
[2020-05-30] MEDS ORDERED: TRI-TAB PO (13:31)
--- NOTE | 2020-05-30 14:12 | REP ---
INDICATION: crush injury COMPARISON: None. TECHNIQUE: AP, lateral, bilateral oblique views left 4th and 5th digits. FINDINGS: The osseous structures and joint spaces are intact and normal. There is no evidence for acute fracture or dislocation. Surrounding soft tissues are unremarkable. No subcutaneous emphysema or radiodense foreign body. IMPRESSION: . No acute fracture or dislocation. <Electronically signed by Trae Roach > 05/30/20 [id number]
== END 2020-05-30 14:38 | disposition home or self-care (01) ==
LOC: M ED 13:20
DX: S63.617A Unspecified sprain of left little finger, initial encounter (principal); W18.2XXA Fall in (into) shower or empty bathtub, initial encounter; Y92.002 Bathroom of unspecified non-institutional (private) residence as the place of occurrence of the external cause; Y93.E1 Activity, personal bathing and showering; Z88.8 Allergy status to other drugs, medicaments and biological substances; Z79.3 Long term (current) use of hormonal contraceptives